=== PATIENT | female | born 1960 | race Caucasian/White ===

== ENCOUNTER → 2017-07-05 | Outpatient (CLI) | payer MEDICARE ==
[~2017-07-05] MED LIST: D31000CA3 PO; DETR2TAB PO; ESTR42.5V VAGINAL; IBUP-1129 PO; LOTR5CAP3 PO; PANT40TA3 PO; RANI150T PO; RISE1TAB13 PO; SACC1CAP3 PO; TRAM-388 PO
== END ==
LOC: HRSP 11:06
PROVIDERS: ATTEND Internal Medicine Sleep Medicine
DX: R06.89 Other abnormalities of breathing (principal)
CPT/HCPCS: 36600; 82805